=== PATIENT | female | born 1975 | race Caucasian/White ===

== ENCOUNTER 2018-02-04 10:39 | Emergency (ER) | payer OTHER ==
[~2018-02-04] VITALS: Ht 165.1 cm; Wt 84.3 kg
[~2018-02-04 10:39] MED LIST: IBUP-2030 PO; ONDA4TAB21 PO
[2018-02-04] MEDS ORDERED: IBUPROFEN 600MG TABLET PO ONE (14:30)
[2018-02-04 18:00] VITALS: BP 124/58
[2018-02-04] MEDS ORDERED: ACETAMINOPHEN WITH CODEINE 300/30MG TABLET PO ONE (18:00)
== END 2018-02-04 18:45 | disposition home or self-care (01) ==
LOC: ER 14:05
DX: S92.252A Displaced fracture of navicular [scaphoid] of left foot, initial encounter for closed fracture (principal); S62.122A Displaced fracture of lunate [semilunar], left wrist, initial encounter for closed fracture; E11.9 Type 2 diabetes mellitus without complications; W18.39XA Other fall on same level, initial encounter; Y93.89 Activity, other specified; Y92.89 Other specified places as the place of occurrence of the external cause; Y99.8 Other external cause status
CPT/HCPCS: 29125; 73110; 73562; 82962; 99284

== ENCOUNTER 2018-02-26 10:10 | Emergency (ER) | payer OTHER ==
[~2018-02-26] VITALS: Ht 165.1 cm; Wt 80.0 kg
[2018-02-26 11:16] LABS: CLARITY URINE CLEAR (CLEAR); COLOR URINE YELLOW (YELLOW); KETONES URINE NEGATIVE (NEGATIVE); LEUKOCYTE ESTERASE URINE NEGATIVE (NEGATIVE); NITRITE URINE NEGATIVE (NEGATIVE); OCCULT BLOOD URINE 3+ (NEGATIVE); PROTEIN URINE NEGATIVE (NEGATIVE); SPECIFIC GRAVITY URINE 1.005 (1.005-1.030); UROBILINOGEN URINE 0.2 E.U./dL (0.2-1.0)
[2018-02-26 11:55] LABS: BASOPHILS % 1.4 % (0.0-2.0); EOSINOPHILS % 2.8 % (0.0-5.0); HEMATOCRIT. 33.6 % (36.0-48.0); HEMOGLOBIN. 11.2 g/dL (12.0-16.0); LYMPHOCYTES % 38.7 % (20.0-50.0); MEAN CORPUSCULAR HEMOGLOBIN 25.4 pg (28.0-32.0); MEAN CORPUSCULAR VOLUME 76.5 fL (81.0-99.0); MEAN PLATELET VOLUME 9.3 fl (7.4-10.4); MONOCYTES % 7.7 % (2.0-8.0); NEUTROPHILS % 49.4 % (40.0-76.0); PLATELET 371 x1000/uL (130-400); RED BLOOD CELL COUNT 4.39 mill/uL (4.2-5.4); RED CELL DISTRIBUTION WIDTH 15.3 % (11.6-14.6)
[2018-02-26 11:59] LABS: CHLORIDE 108 mEq/L (98-107)
[2018-02-26 12:43] VITALS: BP 119/63
== END 2018-02-26 12:46 | disposition home or self-care (01) ==
LOC: ER 10:29
DX: O03.88 Urinary tract infection following complete or unspecified spontaneous abortion (principal); Z3A.00 Weeks of gestation of pregnancy not specified
CPT/HCPCS: 36415; 76801; 80053; 81003; 81025; 83690; 84702; 85025; 86850; 86900; 99285

== ENCOUNTER 2018-02-26 17:19 | Emergency (ER) | payer OTHER ==
[~2018-02-26] VITALS: Ht 165.1 cm; Wt 80.0 kg
[2018-02-26 22:35] LABS: BASOPHILS % 0.8 % (0.0-2.0); EOSINOPHILS % 2.8 % (0.0-5.0); HEMATOCRIT. 30.1 % (36.0-48.0); HEMOGLOBIN. 9.9 g/dL (12.0-16.0); LYMPHOCYTES % 36.3 % (20.0-50.0); MEAN CORPUSCULAR HEMOGLOBIN 25.1 pg (28.0-32.0); MEAN CORPUSCULAR VOLUME 76.2 fL (81.0-99.0); MEAN PLATELET VOLUME 8.5 fl (7.4-10.4); MONOCYTES % 10.2 % (2.0-8.0); NEUTROPHILS % 49.9 % (40.0-76.0); PLATELET 329 x1000/uL (130-400); RED BLOOD CELL COUNT 3.95 mill/uL (4.2-5.4); RED CELL DISTRIBUTION WIDTH 15.2 % (11.6-14.6)
[2018-02-27] MEDS ORDERED: ONDANSETRON 4MG ODT PO ONE (02:00)
[2018-02-27] MEDS ORDERED: ACETAMINOPHEN 325MG TABLET PO ONE (02:00)
[2018-02-27 05:30] LABS: CHLORIDE 104 mEq/L (98-107)
[2018-02-27] MEDS ORDERED: MORPHINE SULFATE 4 MG/ML CPJ (NOT FOR IM USE) IV ONE (05:45)
[2018-02-27 14:09] VITALS: BP 105/62
== END 2018-02-27 14:32 | disposition home or self-care (01) ==
LOC: ER 18:02 → ENRESERV 02-27 07:09 → EDBEDREQ 02-27 07:38 → UNDOADMIN 02-27 08:06 → 6WST 02-27 08:06 → EDBEDREQ 02-27 08:10 → ER 02-27 14:32
DX: O20.9 Hemorrhage in early pregnancy, unspecified (principal); O26.891 Other specified pregnancy related conditions, first trimester; R10.2 Pelvic and perineal pain; Z3A.01 Less than 8 weeks gestation of pregnancy
CPT/HCPCS: 36415; 76801; 76817; 80048; 84702; 85018; 85025; 86850; 86900; 86901; 96374; 99285; J2270; Q0162

== ENCOUNTER 2021-04-23 05:19 | Emergency (ER) | payer MEDICAID, OTHER ==
[~2021-04-23] VITALS: Ht 154.9 cm; Wt 78.0 kg
[2021-04-23 05:22] VITALS: BP 133/72
[2021-04-23] MEDS ORDERED: KETOROLAC 60MG/2ML VIAL IM ONE (06:45)
[2021-04-23] MEDS ORDERED: TOPUD PO (06:57)
== END 2021-04-23 08:04 | disposition home or self-care (01) ==
LOC: ER 05:19
DX: M54.2 Cervicalgia (principal); M79.622 Pain in left upper arm; E11.9 Type 2 diabetes mellitus without complications; J45.909 Unspecified asthma, uncomplicated; V43.52XA Car driver injured in collision with other type car in traffic accident, initial encounter; Y93.89 Activity, other specified; Y92.488 Other paved roadways as the place of occurrence of the external cause
CPT/HCPCS: 72040; 73502; 96372; 99284; J1885